=== PATIENT | male | born 1995 | race Caucasian/White ===

== ENCOUNTER 2017-03-17 20:29 | Emergency (ER) | payer BC ==
[~2017-03-17] VITALS: Ht 182.9 cm; Wt 65.0 kg
[2017-03-17] MEDS ORDERED: LIDOCAINE 1%, 20ML ONE (20:54)
[2017-03-17] MEDS ORDERED: LIDOCAINE 1%, 20ML INFIL ONE (21:00)
[2017-03-17] MEDS ORDERED: BACITRACIN ZINC OINT 500U/GM, 0.9 GM ONE (21:34)
[2017-03-17 21:45] VITALS: BP 113/74
== END 2017-03-17 22:16 | disposition home or self-care (01) ==
LOC: ED 21:33
DX: S61.411A Laceration without foreign body of right hand, initial encounter (principal); W33.11XA Accidental malfunction of shotgun, initial encounter; Y93.89 Activity, other specified; Y99.8 Other external cause status; Y92.830 Public park as the place of occurrence of the external cause
CPT/HCPCS: 12001